=== PATIENT | male | born 1970 | race Caucasian/White ===

== ENCOUNTER 2025-02-24 10:10 | Day surgery (SDC) | payer SELFPAY, OTHER ==
--- NOTE | 2025-02-04 13:58 | EKG12_ITS ---
Test Reason : PREOP Blood Pressure : */* mmHG Vent. Rate : 84 BPM Atrial Rate : 84 BPM P-R Int : 138 ms QRS Dur : 88 ms QT Int : 366 ms P-R-T Axes : 58 72 -2 degrees QTcB Int : 432 ms Normal sinus rhythm Abnormal QRS-T angle, consider primary T wave abnormality Abnormal ECG Confirmed by JASON ZHANG, NIRMAL ([id number]), editorial assistant MARQUISE LOZANO ([id number]) on 02/05/2025 7:20:04 AM Referred By: Td Christianson Confirmed By: NIRMAL GOMEZ MD
--- NOTE | 2025-02-05 14:33 | PAT.ANESEVAL ---
Pre-Assessment Diagnosis/Proposed Procedure Planned Operative Procedure(s): LAPROBOTIC RIGHT INGUINAL HERNIA WITH MESH/POSS BILAT Anesthesia History Anesthesia History - therapy coordinator: Anesthesia History - therapy coordinator Hx Hospitalization No 01/30/25 11:51 Any Problems With Anesthesia No 01/30/25 11:51 Cholinesterase deficiency No 01/30/25 11:51 You/Your Family Experience No 01/30/25 11:51 fever (hyperthermia) with Relationship Recent Exposure to Contagious Disease Does patient have nerve No 01/30/25 11:51 stimulator Patient instructed to have device shut off --Does patient have Pacemaker or ICD? When Was Last Pacemaker Check QUESTION #4 FULL TEXT: You/Your Family Experience fever (hyperthermia) with Anesthesia Last Oral Intake Last Oral intake: Last Oral Intake NPO since Meds taken in AM with sips of water? Meds patient instructed to take am of surgery PONV PONV - therapy coordinator: PONV - therapy coordinator Female No 01/30/25 11:51 HX of Motion Sickness No 01/30/25 11:51 HX of N/V After Surgery No 01/30/25 11:51 Non-Smoker No 01/30/25 11:51 Duration of Surgery greater Yes 01/30/25 11:51 than 60 minutes Number of Risk Factors 1 01/30/25 11:51 PONV Score Low Risk 01/30/25 11:51 Height & Weight Height & Weight: Anesthesia: Height & Weight Height 5 ft 7 in 01/22/25 09:49 Respiratory Assessment Respiratory Assessment - therapy coordinator: Respiratory Tract Infection Hx - therapy coordinator Hx Respiratory Tract Infection No 01/30/25 11:51 STOP Sleep Apnea STOP Sleep Apnea - therapy coordinator: STOP Sleep Apnea - therapy coordinator Hx Hypertension No 01/30/25 11:51 Hx Sleep Apnea No 01/30/25 11:51 CPAP BIPAP Do you snore loudly (louder No 01/30/25 11:51 than talking or can be heard Do you often feel tired/ No 01/30/25 11:51 fatigued/ sleepy during daytime? Has anyone observed you stop No 01/30/25 11:51 breathing during sleep? STOP Results Negative 01/30/25 11:51 QUESTION #5 FULL TEXT : Do you snore loudly (louder than talking or can be heard through closed doors)? 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 Specify any problems Hx of Preganancy in last 3 N/A 01/30/25 11:51 Months Nurse Filling Out Transfusion DSCHRIBER 01/30/25 11:51 & Questions: Date: 01/30/25 01/30/25 11:51 Time: 11:54 01/30/25 11:51 Patient unable to answer at this time (ie. confused, unrespo /Reproduction History /Reproductive History - therapy coordinator: /Reproductive Hx- therapy coordinator Hx Now No 01/30/25 11:51 Gestational Age (in weeks): EDC: Hx Hx Para Hx Section SAB No 01/30/25 11:51 [facility] Medical History (Updated 01/30/25 @ 12:01 by Melisa Lucia) Wears glasses Wears partial dentures Prostate disease Bladder disease Back pain Restless legs Loss of consciousness Injury of head and neck Smoker Leg cramps History of pain when walking Right groin pain Anxiety Depression Home Medications ?Medication ?Instructions ?Recorded ?Last Taken ?Type Lactobacillus combo no.23 14 14 cell PO DAILY 01/22/25 Unknown History billion cell capsule (Marcello Probiotic) multivitamin (One Daily Essential 2 tab PO TID 01/22/25 Unknown History tablet) total man 2 tab PO BID 01/22/25 Unknown History NATESS 3 tab PO QHS 01/30/25 Unknown History lorazepam 0.5 mg tablet 0.5 - 1 mg PO Q8 PRN anxiety 01/30/25 Unknown History zolpidem 10 mg tablet 5 - 10 mg PO QHS PRN sleep 01/30/25 Unknown History Allergy/AdvReac Type Severity Reaction Status Date / Time No Known Allergies Allergy Verified 01/30/25 11:44 Surgical History (Updated 01/30/25 @ 12:01 by Melisa Lucia) S/P tonsillectomy S/P surgical amputation of finger Social History Smoking Status: Current every day smoker tobacco type: pipe Smokeless tobacco user: snuff alcohol intake: never Audit: Pertinent Findings Pertinent Findings EKG Perinent findings: 02/04/2025. Normal sinus rhythm 84 bpm. Abnormal QRS-T angle, consider primary T wave abnormality. Recommendation Anesthesia Recommendation Anesthesia recommendation: OPTIMIZED for anesthesia
[2025-02-24] VITALS (12 sets, daily range): BP systolic 99–132; BP diastolic 63–78; PULSE 65–84; RESP 16; TEMP 36.1–36.8; O2SAT 93–97; BMI 32.5
--- NOTE | 2025-02-24 11:08 | PCM.PRE.AN2 ---
ASA Classification* ASA Classification ASA Classification: 2 Assessment & Plan Anesthesia* Anesthesia Assessment Anesthesia Assessment: Discussed sedation and/or anesthesia options, risks, benefits, and alternatives with patient/parents/legal guardian/POA. Questions invited. The patient/parents/legal guardian/POA seems to understand and agrees to proceed with anesthesia plan. Reviewed the physical assessment, medical history, allergy history and patient home medications list prior to surgery/procedure/anesthetic and documented any changes. Performed airway and anesthesia risk assessments. 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 When Was Last Pacemaker Check QUESTION #4 FULL TEXT: You/Your Family Experience fever (hyperthermia) with Anesthesia Last Oral Intake Last Oral intake: Last Oral Intake NPO since 06:00 02/24/25 10:58 Meds taken in AM with sips of No 02/24/25 10:58 water? 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 - guitar repair technician Female No 01/30/25 11:51 HX of Motion Sickness No 01/30/25 11:51 HX of N/V After Surgery No 01/30/25 11:51 Non-Smoker No 01/30/25 11:51 Duration of Surgery greater Yes 01/30/25 11:51 than 60 minutes Number of Risk Factors 1 01/30/25 11:51 PONV Score Low Risk 01/30/25 11:51 Height & Weight Height & Weight: Anesthesia: Height & Weight Height 5 ft 7 in 02/24/25 10:58 Weight: 94.2 kg 02/24/25 10:58 Body Mass Index (BMI) 32.5 02/24/25 10:58 Respiratory Assessment Respiratory Assessment - guitar repair technician: Respiratory Tract Infection Hx - guitar repair technician Hx Respiratory Tract Infection No 01/30/25 11:51 STOP Sleep Apnea STOP Sleep Apnea - guitar repair technician: STOP Sleep Apnea - guitar repair technician Hx Hypertension No 01/30/25 11:51 Hx Sleep Apnea No 01/30/25 11:51 CPAP BIPAP Do you snore loudly (louder No 01/30/25 11:51 than talking or can be heard Do you often feel tired/ No 01/30/25 11:51 fatigued/ sleepy during daytime? Has anyone observed you stop No 01/30/25 11:51 breathing during sleep? STOP Results Negative 01/30/25 11:51 QUESTION #5 FULL TEXT : Do you snore loudly (louder than talking or can be heard through closed doors)? 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 Specify any problems Hx of Preganancy in last 3 N/A 01/30/25 11:51 Months Nurse Filling Out Transfusion DSCHRIBER 01/30/25 11:51 & Questions: Date: 01/30/25 01/30/25 11:51 Time: 11:54 01/30/25 11:51 Patient unable to answer at this time (ie. confused, unrespo /Reproduction History /Reproductive History - guitar repair technician: /Reproductive Hx- guitar repair technician Hx Now No 01/30/25 11:51 Gestational Age (in weeks): EDC: Hx Hx Para Hx Section SAB No 01/30/25 11:51 Active Medications Active Medications: Current Medications Generic Name Dose Route Start Last Admin Trade Name Freq PRN Reason Stop Dose Admin Cefazolin Sodium 2 gm/ N/A 20 mls @ 400 mls/hr 02/24/25 12:10 IV 02/24/25 12:12 PREOP ONE Sodium Chloride 1,000 mls @ 15 mls/hr 02/24/25 10:25 IV .Q48H [facility] Medical History Wears glasses Wears partial dentures Prostate disease Bladder disease Back pain Restless legs Loss of consciousness Injury of head and neck Smoker Leg cramps History of pain when walking Right groin pain Anxiety Depression Home Medications ?Medication ?Instructions ?Recorded ?Last Taken ?Type Lactobacillus combo no.23 14 14 cell PO DAILY 01/22/25 Unknown History billion cell capsule (Marcello Probiotic) multivitamin (One Daily Essential 2 tab PO TID 01/22/25 Unknown History tablet) total man 2 tab PO BID 01/22/25 Unknown History NATESS 3 tab PO QHS 01/30/25 Unknown History lorazepam 0.5 mg tablet 0.5 - 1 mg PO Q8 PRN anxiety 01/30/25 Unknown History zolpidem 10 mg tablet 5 - 10 mg PO QHS PRN sleep 01/30/25 Unknown History Allergy/AdvReac Type Severity Reaction Status Date / Time No Known Allergies Allergy Verified 02/24/25 10:57 Surgical History S/P tonsillectomy S/P surgical amputation of finger Social History Smoking Status: Current every day smoker tobacco type: pipe Smokeless tobacco user: snuff alcohol intake: never Review of Systems (Anesthesia) ROS Narrative System reviewed and no additional complaints, except as documented.
[2025-02-24] MEDS: 0.9% Normal Saline (1000mL) 1,000 ML 15 ML IV (11:11)
[2025-02-24 11:30] LABS: Hematocrit 42.4 % (40-54); Hemoglobin 15.5 g/dL (13.0-16.5); Mean Corp Hgb Conc 36.6 g/dL (32-36); Mean Corpuscular Hgb 34.1 pg (27.0-32.0); Mean Corpuscular Volume 93.2 fL (80-94); Mean Platelet Vol. 10.2 fl (6.2-12.0); Platelet Count 191 K/mm3 (150-450); Red Blood Count 4.55 M/mm3 (4.6-6.2)
--- NOTE | 2025-02-24 11:35 | HP.PCM_ITS ---
HPI - General General Date of Admission: 02/24/25 Date of Service: 02/24/25 Chief Complaint: Right inguinal hernia HPI Narrative ZAHRA CORONA, is a 54 M who presents for elective robotic repair of a right inguinal hernia. Patient was recently seen to the office and diagnosed with a right sided hernia. No obvious left inguinal hernia was appreciated. [facility] Medical History Wears glasses Wears partial dentures Prostate disease Bladder disease Back pain Restless legs Loss of consciousness Injury of head and neck Smoker Leg cramps History of pain when walking Right groin pain Anxiety Depression Home Medications ?Medication ?Instructions ?Recorded ?Last Taken ?Type Lactobacillus combo no.23 14 14 cell PO DAILY 01/22/25 Unknown History billion cell capsule (Marcello Probiotic) multivitamin (One Daily Essential 2 tab PO TID 5 Unknown History tablet) total man 2 tab PO BID 01/22/25 Unknow n History NATESS 3 tab PO QHS 01/30/25 Unknow n History lorazepam 0.5 mg tablet 0.5 - 1 mg PO Q8 PRN anxiety 01/30/25 Unknown History zolpidem 10 mg tablet 5 - 10 mg PO QHS PRN sleep 0 01/30/25 Unknown History Allergy/AdvReac Type Severity Reaction Status Date / Time No Known Allergies Allergy Verified 02/24/25 10:57 Surgical History S/P tonsillectomy S/P surgical amputation of finger Social History Smoking Status: Current every day smoker tobacco type: pipe Smokeless tobacco user: snuff alcohol intake: never Vital Signs Vital Signs Vital Signs: 02/24/25 10:58 02/24/25 10:58 02/24/25 11:08 Temperature 97.8 F 97.8 F Temperature Source Temporal Pulse Rate 70 70 Respiratory Rate 16 16 Respiratory Pattern Normal Blood Pressure 117/74 117/74 Blood Pressure Mean 88 Blood Pressure Source Monitor Blood Pressure Position Semi-Fowlers Blood Pressure Location Left Arm Pulse Ox 94 94 Oxygen Delivery Method Room Air Weight Weight: 207 lb 10.807 oz Body Mass Index (BMI) 32.5 Physical Exam Const alert, oriented x3 and no apparent distress Results Lab / Micro Data 02/24/25 11:11 Labs: Laboratory Results - last 24 hr 02/24/25 11:11: WBC 12.0 H, RBC 4.55 L, Hgb 15.5, Hct 42.4, MCV 93.2, MCH 34.1 H , MCHC 36.6 H, RDW Std Deviation 47.0 H, RDW Coeff of Tamra 14.0, Plt Count 191, MPV 10.2 Assessment & Plan Assessment/Plan (1) Right groin pain: PLAN: Plan Robotic right inguinal hernia repair with mesh planned for today.
[2025-02-24] MEDS: Gentamicin 80 MG/2 ML Vial (12:00)
[2025-02-24] MEDS: Cefazolin 2 GM in Syringe IV (12:03)
--- NOTE | 2025-02-24 13:16 | EX.PCM.DISCH ---
Discharge Instructions Diet Discharge Diet: Light diet - advance as tolerated Activity Discharge Activity: Return to Normal Activity and May Shower May shower in (days): 1 Ice area for (Minutes): 30 Lifting Restrictions: No lifting pushing or pulling more than 20 pounds for 6 weeks Dressing / Incision Call your doctor if your incision/area has: Continuous Slow Oozing, Sudden Increased Bleeding, Increased Pain/ Swelling, Increased Redness, Foul Smelling Discharge and Swelling at the incision site Call your doctor if you observe: Fever of 101 or Higher Cleanse incision/area with: Soap & Water Follow Up Care Please Follow Up With: Td Christianson MD When: 2 weeks. Please call office to schedule appointment Test Results: Test results from this visit will be discussed in further detail at your follow-up appointment, if applicable. Discharge Plan Admission Primary Reason for Your Visit: Right inguinal hernia repair Attending Provider: Td Christianson Primary Care Provider: Rachid Padilla Instructions Print Language: Estonian Discharge Orders/Prescriptions Prescriptions: New oxycodone-acetaminophen [Percocet] 5-325 mg tablet 1 tab PO Q8H PRN (Reason: pain) 3 Days Qty: 10 0RF Continued multivitamin [One Daily Essential] Tablet 2 tab PO TID Marcello Probiotic 14 billion cell capsule 14 cell PO DAILY total man 2 tab PO BID NATESS 3 tab PO QHS zolpidem 10 mg tablet 5 - 10 mg PO QHS PRN (Reason: sleep) lorazepam 0.5 mg tablet 0.5 - 1 mg PO Q8 PRN (Reason: anxiety) Referrals / Follow Up: Rachid Padilla DO [Primary Care Provider] - Disposition Disposition (needs filled in before D/C Order can be placed): Home, Self Care
[2025-02-24] MEDS: Bupiv/Epi 0.25% 30 ML Vial (13:20)
--- NOTE | 2025-02-24 13:20 | OP.PCM_ITS ---
Problems Associated Problem List Diagnoses (1) Right inguinal hernia: Procedures Digestive [id number]: [id number] Lap ing hernia repair init Operative Report (Standard) Operative Information Date of Procedure: 02/24/25 Pre-Operative Diagnosis: Right inguinal hernia Post-Operative Diagnosis: same Surgery/Procedure Performed: Robotic right inguinal hernia repair with mesh global risk management director: Yes Small Piece Cutter: mort Tasks completed by mail handler assistant: Closing and Trocar Additional market research assistant?: No Type of Anesthesia: General and Local RN Documented Start/Stop Times: Operation Date: 02/24/25 12:10 Case Time Into Pre-Op 02/24/25 10:24 Out of Pre-Op 02/24/25 11:56 Anesthesia Start 02/24/25 12:00 Into Room 02/24/25 12:00 Procedure Start 02/24/25 12:19 Procedure Start Time: 12:19 Procedure Stop Time: 13:22 Select all DRAINS/GRAFTS/IMPLANTS that apply: Prosthetic device Prosthetic device details: ProGrip 10 x 15 cm mesh Special Medications: IV antibiotics given preop Estimated Blood Loss: Minimal Specimen collected: No Description of surgery: The patient is a 54-year-old male who was recently seen to the office with a right inguinal hernia. He states that he had had this for couple years and this has been causing him increasing pain and discomfort. I offered him a robotic repair with mesh. We discussed the details of the planned procedure and he wished to proceed. He was brought to the operating today following informed consent. Antibiotics were given and a timeout was performed. He was placed supine on the operative table with arms comfortably of the side. General anesthesia was induced. Once adequately sedated his arms were comfortably tucked at his sides. His abdomen was then prepped and draped in the usual sterile manner. Local anesthetic was injected just above the umbilicus. An 8 mm incision was made using a #11 blade. A 5 mm trocar was then placed optically. This was placed without incident. The abdomen simply insufflated with CO2 gas. There were no signs of bowel or vascular injury. An 8 mm trocar was then placed under direct visualization on the right side of the abdomen. Another 8 mm trocar was placed on the left side of the abdomen. The original 5 mm trocar was then switched out for an 8 mm trocar. He was then placed in mild Trendelenburg positioning. The robot was then brought onto the operative field. All arms were then docked. A ProGrasp was inserted through the left hand port. Camera was inserted through the umbilical trocar site and then a scissors were placed in the right hand port site. The pelvis was then visualized. He had a clearly obvious right direct inguinal hernia. No evidence of left inguinal hernia. The peritoneum was then incised in a lateral to medial direction. A sub-peritoneal plane was then developed and Rhys's ligament was dissected out medially. The direct hernia sac was then reduced reduced. This reduced actually quite easily. There was no indirect hernia sac. Once sufficient dissection was performed a ProGrip 10 x 15 mesh was inserted. This was laid into position.. This covered the fascial defect nicely. The peritoneum was then closed using a running V-Loc suture. This closed nicely. There was 1 area in the peritoneum that required some 3-0 Vicryl to close primarily. The remaining trocars were then opened up and insufflation was allowed to escape. Local anesthetic was injected. Each incision was then closed using 4-0 Vicryl. Skin glue was applied as dressing. He was awakened from anesthesia and taken to recovery in good condition. A FIORDALIZA was utilized as a nursing home assistant administrator. Her role included assistance with trocar placement, instrument exchanges and incision closure Surgical Findings: Moderate sized direct inguinal hernia on right; no evidence of hernia on left Complications Complications: No Admit VTE Documentation VTE Present on Admission: No VTE Mechan Device Prophylaxis: SCD's VTE Pharm Prophylaxis ordered?: No Reason prophylaxis not ordered: Treatment Not Indicated
--- NOTE | 2025-02-24 13:33 | PCM.POST.ANE ---
Anesthesia: Postop Eval I Current Vital Signs Temperature: 97 F Pulse Rate: 71 Blood Pressure: 99/63 Respiratory Rate: 16 Pulse Ox: 94 Oxygen Delivery Method: Room Air Assessment Airway patent: Yes Spontaneous unlabored respirations: Yes Mental status: Awake and Calm nausea: No Vomiting: No Anesthesia Complication: No Fluid Hydration Crystalloid volume administer (ml): 1,400 Total IV fluid infused: 1,400 Progress Note Anesthesia document: Postop Eval 1 completed: Yes
--- NOTE | 2025-02-24 14:25 | POSTOPAN2_ITS ---
Anesthesia Postop Eval I Sum Postop Eval Completion status Anesthesia document: Postop Eval 1 completed: Yes Anesthesia Postop Eval I Summary Anesthesia Postop Eval I Summary: Anesthesia Postop Eval I: Assessment Summary Airway patent Yes 02/24/25 13:34 PRECISION PRINTING WORKER.MDOT Spontaneous unlabored Yes 02/24/25 13:34 PRECISION PRINTING WORKER.MDOT respirations Mental status Awake,Calm 02/24/25 13:34 PRECISION PRINTING WORKER.MDOT nausea No 02/24/25 13:34 PRECISION PRINTING WORKER.MDOT Vomiting No 02/24/25 13:34 PRECISION PRINTING WORKER.MDOT Anesthesia Postop Eval I: Fluid Summary Crystalloid volume administer 1,400 02/24/25 13:34 PRECISION PRINTING WORKER.MDOT (ml) Colloids volume administered ( ml) Blood Product volume administered (ml) Total IV fluid infused 1,400 02/24/25 13:34 PRECISION PRINTING WORKER.MDOT Anesthesia Postop Eval I: Summary Notes Anesthesia Complication No 02/24/25 13:34 PRECISION PRINTING WORKER.MDOT Anesthesia Complication Comment: Post-operative progress note Anesthesia: Postop Eval II Evaluation Mental status: Awake Pain Level: 0 nausea: No Vomiting: No
--- NOTE | 2025-02-24 14:25 | PCM.POSTANE2 ---
Anesthesia Postop Eval I Sum Postop Eval Completion status Anesthesia document: Postop Eval 1 completed: Yes Anesthesia Postop Eval I Summary Anesthesia Postop Eval I Summary: Anesthesia Postop Eval I: Assessment Summary Airway patent Yes 02/24/25 13:34 RELIEF MATE.MDOT Spontaneous unlabored Yes 02/24/25 13:34 RELIEF MATE.MDOT respirations Mental status Awake,Calm 02/24/25 13:34 RELIEF MATE.MDOT nausea No 02/24/25 13:34 RELIEF MATE.MDOT Vomiting No 02/24/25 13:34 RELIEF MATE.MDOT Anesthesia Postop Eval I: Fluid Summary Crystalloid volume administer 1,400 02/24/25 13:34 RELIEF MATE.MDOT (ml) Colloids volume administered ( ml) Blood Product volume administered (ml) Total IV fluid infused 1,400 02/24/25 13:34 RELIEF MATE.MDOT Anesthesia Postop Eval I: Summary Notes Anesthesia Complication No 02/24/25 13:34 RELIEF MATE.MDOT Anesthesia Complication Comment: Post-operative progress note Anesthesia: Postop Eval II Evaluation Mental status: Awake Pain Level: 0 nausea: No Vomiting: No
== END 2025-02-24 16:15 | disposition home or self-care (01) ==
LOC: SDC 10:12 → AC 10:13
PROVIDERS: Anesthesiology; PCP Family Medicine; Referring Provider Surgery; Visit Provider Surgery
PROC: (CPT 49650; principal; 2025-02-24 11:50)
DX: K40.90 Unilateral inguinal hernia, without obstruction or gangrene, not specified as recurrent (principal); F17.290 Nicotine dependence, other tobacco product, uncomplicated
CPT/HCPCS: 49650; S2900; 00750; 85027; 93005; C1781; J2405